=== PATIENT | female | born 1955 | race Caucasian/White ===

== ENCOUNTER 2017-03-26 11:05 | Emergency (ER) | payer BC, OTHER ==
[2017-03-26 11:10] VITALS: BMI 22.3
--- NOTE | 2017-03-26 15:10 | PDOC ---
History of Present Illness - General Chief Complaint: Pain Stated Complaint: ABD PAIN Time Seen by Provider: 03/26/17 15:08 History Source: Patient Exam Limitations: No Limitations - History of Present Illness Initial Comments: 03/26/17 15:33 61F PMHx HTN, HLD, diverticulosis with cc of lower abd pain x 1 day. Intermittent, sharp in nature. + 1 episode of nonbloody loose stool, no vomiting. No fever/chills. Also c/o urinary frequency and burning with urination x same duration. Denies back pain. Reports similar episode years ago with unclear etiology. Traveled to [facility] in Feb, no other family members sick, did not have similar sxs while abroad. Timing/Duration: 24 hours, intermittent Past History - Travel Traveled outside of the country in the last 30 days: No If so, where[facility] Close contact w/someone who was outside of country & ill: No - Past Medical History Allergies/Adverse Reactions: Allergies Allergy/AdvReac Type Severity Reaction Status Date / Time No Known Allergies Allergy Verified 03/26/17 11:09 Home Medications: Ambulatory Orders Aspirin [ASA -] 81 mg PO DAILY 08/29/13 Atorvastatin Ca [Lipitor -] 10 mg PO HS 08/29/13 Pravastatin Sodium 5 mg PO DAILY 08/29/13 Ciprofloxacin/Ciprofloxa HCl [Cipro Xr 500 mg Tablet] 500 mg PO BID 7 Days #14 tbmp.24hr 03/26/17 Metronidazole [Flagyl -] 500 mg PO BID 7 Days #14 tablet 03/26/17 COPD: No HTN: Yes Hypercholesterolemia: Yes Other medical history: Diverticulosis - Surgical History Abdominal Surgery: Yes (c sxn) - Suicide/Smoking/Psychosocial Hx Smoking History: Never smoked Hx Alcohol Use: Yes (SOCIAL) Drug/Substance Use Hx: No Substance Use Type: None Review of Systems - Review of Systems Is the patient limited [place] proficient: No Constitutional: No: Chills, Fever Respiratory: Yes: Other (dry cough). No: Shortness of Breath, SOB with Exertion , SOB at Rest ABD/GI: Yes: Diarrhea. No: Nausea, Rectal Bleeding, Vomiting, Tarry Stools : Yes: Burning, Dysuria, Frequency, Urgency *Physical Exam - Vital Signs Last Vital Signs Temp Pulse Resp BP Pulse Ox 97.8 F 105 H 20 128/73 99 03/26/17 11:06 03/26/17 11:06 03/26/17 11:06 03/26/17 11:06 03/26/17 11:06 - Physical Exam General Appearance: Yes: Nourished, Appropriately Dressed. No: Apparent Distress HEENT: positive: EOMI, Normal Voice, Symmetrical Neck: positive: Trachea midline Respiratory/Chest: positive: Lungs Clear Cardiovascular: positive: Regular Rhythm Gastrointestinal/Abdominal: positive: Normal Bowel Sounds. negative: Tender, Decreased BS, Distended, Guarding, Tenderness Rectal Exam: positive: deferred Musculoskeletal: negative: CVA Tenderness (R), CVA Tenderness (L) Extremity: negative: Swelling Neurologic: positive: Fully Oriented, Alert, Normal Mood/Affect, Normal Response ED Treatment Course - LABORATORY CBC & Chemistry Diagram: 03/26/17 16:25 03/26/17 16:25 Medical Decision Making - Medical Decision Making 03/26/17 15:41 61F with above hx p/w lower abd pain and urinary complaintsm, tachycardic 105 on triage VS, afebrile. Nontender abd exam. Ddx includes UTI, diverticulosis/ itis, gastroenteritis. - labs - UA, u cx - IVF, motrin - reassess, if UA normal will consider abd imaging 03/26/17 21:52 Pt feeling improved, still with intermittent colicky lower abdominal pain, abd exam benign. Tolerating PO. CT reveals colitis, will dc with cipro and flagyl. f /u with PMD within the next 3 days. *DC/Admit/Observation/Transfer Diagnosis at time of Disposition: Colitis - Discharge Dispostion Disposition: HOME Condition at time of disposition: Improved Admit: No - Prescriptions Prescriptions: Ciprofloxacin/Ciprofloxa HCl [Cipro Xr 500 mg Tablet] 500 mg PO BID 7 Days #14 tbmp.24hr Metronidazole [Flagyl -] 500 mg PO BID 7 Days #14 tablet - Referrals Referrals: Juwan Ron MD [Primary Care Provider] - - Patient Instructions Printed Discharge Instructions: DI for Colitis Additional Instructions: Your CT scan showed that you have colitis. Please take ciprofloxacin and flagyl (antibiotics) twice a day for 7 days. Please make sure to follow up with your primary care doctor this week. Return to the ER if your symptoms worsen. - Post Discharge Activity
[2017-03-26] MEDS ORDERED: SODIUM CHLORIDE 1,000 ML IV STA (15:30)
[2017-03-26 16:37] LABS: BASO % 0.6 % (0-2.0); EOS % 1.2 % (0-4.5); HEMATOCRIT 41.8 % (32.4-45.2); LYMPH % 19.3 % (8-40); MCH 30.7 pg (25.7-33.7); MCHC 33.5 g/dl (32.0-36.0); MEAN CELL VOLUME 91.7 fl (80-96); MONO % 8.1 % (3.8-10.2); NEUT % 70.8 % (42.8-82.8); PLATELET COUNT 228 K/MM3 (134-434); RBC 4.56 M/mm3 (3.60-5.2); RDW 13.6 % (11.6-15.6); WHITE BLOOD COUNT 10.3 K/mm3 (4.0-10.0)
[2017-03-26 16:39] LABS: URINE APPEARANCE CLEAR; URINE BILIRUBIN NEGATIVE (NEGATIVE); URINE BLOOD NEGATIVE (NEGATIVE); URINE COLOR LTYELLOW; URINE GLUCOSE (UA) NEGATIVE (NEGATIVE); URINE KETONE NEGATIVE (NEGATIVE); URINE LEUK ESTERASE TRACE (NEGATIVE); URINE NITRITE NEGATIVE (NEGATIVE); URINE PROTEIN NEGATIVE (NEGATIVE); URINE UROBILINOGEN NEGATIVE mg/dL (0.2-1.0)
[2017-03-26 16:43] LABS: EPI CELLS RARE /HPF (FEW); URINE MUCUS RARE
[2017-03-26 16:57] LABS: INR 0.97 (0.82-1.09)
[2017-03-26 17:00] LABS: ACTIVATED PTT 31.2 SECONDS (26.9-34.4)
[2017-03-26 17:11] LABS: ALBUMIN 3.6 g/dl (3.4-5.0); ALK PHOS 82 U/L (45-117); ANION GAP 8 (8-16); BILIRUBIN,TOTAL 0.5 mg/dL (0.2-1.0); BLOOD UREA NITROGEN 7 mg/dL (7-18); CALCIUM 8.3 mg/dL (8.5-10.1); CHLORIDE 108 mmol/L (98-107); CO2 27 mmol/L (21-32); CREATININE 0.5 mg/dL (0.55-1.02); GLUCOSE,RANDOM 90 mg/dL (74-106); LIPASE 118 U/L (73-393); POTASSIUM 3.7 mmol/L (3.5-5.1); SGOT/AST 17 U/L (15-37); SGPT/ALT 34 U/L (12-78); SODIUM 143 mmol/L (136-145); TOT PROT 7.2 g/dl (6.4-8.2)
[2017-03-26] MEDS ORDERED: morphine CARPU-JECT 4 MG/1 ML DISP.SYRIN IVPUSH ONE (19:37)
[2017-03-26] MEDS ORDERED: morphine CARPU-JECT 10 MG/1 ML DISP.SYRIN ONE (21:02)
[2017-03-26] MEDS ORDERED: metroNIDAZOLE 250 MG TABLET PO ONE (21:50)
[2017-03-26] MEDS ORDERED: CIPROFLOXACIN 500 MG TABLET (RESTRICTED TO ID) PO ONE (21:50)
[2017-03-26] MEDS ORDERED: metroNIDAZOLE 250 MG TABLET ONE (21:55)
[2017-03-26 23:14] VITALS: BP 114/72; PULSE 73; TEMP 98.1
== END 2017-03-26 23:00 | disposition home or self-care (01) ==
LOC: JER 11:05
PROC: 3E0337Z Introduction of Electrolytic and Water Balance Substance into Peripheral Vein, Percutaneous Approach (ICD-10-PCS; principal; 2017-03-26)
PROC: 3E033NZ Introduction of Analgesics, Hypnotics, Sedatives into Peripheral Vein, Percutaneous Approach (ICD-10-PCS; 2017-03-26)
DX: K52.9 Noninfective gastroenteritis and colitis, unspecified (principal); I10 Essential (primary) hypertension; E78.00 Pure hypercholesterolemia, unspecified; Z87.19 Personal history of other diseases of the digestive system
CPT/HCPCS: 36415; 74177-TC; 80053; 81003; 81015; 83605; 83690; 85025; 85610; 85730; 87086; 99283-25; Q9967